=== PATIENT | male | born 1960 | race Asian ===

== ENCOUNTER 2021-01-31 10:08 | Inpatient (IN) ==
[2021-01-31 16:03] LABS: ABS Basophils 0.1 10^3/ul (0-0.2); ABS Eosinophils 0.4 10^3/ul (0-0.6); ABS Lymphocytes 2.1 10^3/ul (1.0-4.8); ABS Monocytes 0.3 10^3/ul (0-0.8); ABS Neutrophils 4.6 10^3/ul (1.5-7.7); Eosinophil % 5.6 %; Hematocrit 48 % (42-52); Hemoglobin 16.3 g/dL (14.0-18.0); Lymphocyte % 27.8 %; Mean Corpuscular HGB Conc 34 g/dL (31-36); Mean Corpuscular Hemoglobin 31 pg (27-31); Mean Corpuscular Volume 90 fL (80-94); Mean Platelet Volume 7.2 fL (7.4-10.4); Platelet Count 230 10^3/uL (150-450); Red Blood Count 5.28 10^6 /uL (4.18-5.48); Red Cell Distribution Width 13 % (10-15); White Blood Count 7.5 10^3/uL (3.5-10.8)
[2021-01-31 16:20] LABS: INR 0.96 (0.82-1.09)
[2021-01-31 16:32] LABS: Albumin 4.8 g/dL (3.2-5.2); Calcium 9.2 mg/dL (8.6-10.3); EGFR African American 99.1 (>60); EGFR Non-African American 81.9 (>60); Magnesium 2.2 mg/dL (1.9-2.7); Potassium 3.8 mmol/L (3.5-5.0); Total Protein 7.7 g/dL (6.4-8.9)
[2021-01-31 16:33] LABS: Albumin/Globulin Ratio 1.7 (1-3); Globulin 2.9 g/dL (2-4); Total Bilirubin 0.8 mg/dL (0.2-1.0)
[2021-01-31 17:04] LABS: Urine Appearance Clear; Urine Bilirubin Negative (Negative); Urine Blood Negative (Negative); Urine Color Straw; Urine Glucose Negative (Negative); Urine Ketones Negative (Negative); Urine Nitrite Negative (Negative); Urine Protein Negative (Negative); Urine Specific Gravity 1.008 (1.002-1.030); Urine Urobilinogen Negative (Negative)
[2021-01-31] MEDS ORDERED: Iohexol 350 (CONTRAST) 500 ML MDV IV ONE (17:17)
[2021-01-31] MEDS ORDERED: Aspirin EC 81 mg TAB.EC (enteric coated) PO SCH (18:00)
[2021-01-31 18:06] LABS: HDL Cholesterol 40.4 mg/dL
[2021-01-31 18:23] LABS: TSH Ultra Thyroid Stim Horm 5.01 mcIU/mL (0.34-5.60)
[2021-01-31] MEDS ORDERED: Ondansetron 4 mg VIAL 2 MG/ML 2 ml VIAL IV PRN (20:31)
[2021-01-31] MEDS: Aspirin EC 81 mg TAB.EC (enteric coated) PO SCH (20:52)
[2021-02-01 05:22] LABS: Calcium 8.8 mg/dL (8.6-10.3); EGFR African American 94.4 (>60); HDL Cholesterol 34.5 mg/dL; Potassium 3.4 mmol/L (3.5-5.0)
[2021-02-01] MEDS: Aspirin EC 81 mg TAB.EC (enteric coated) PO SCH (08:23)
[2021-02-01 16:12] VITALS: BP 129/64
== END 2021-02-01 15:50 | disposition home or self-care (01) | DRG 45 ==
LOC: ED 10:08 → MEDTELE 10:08 → OBSVTOIN 21:49 → MEDTELE 22:17
PROVIDERS: ADMIT Internal Medicine; ATTEND Internal Medicine